=== PATIENT | female | born 1965 | race Caucasian/White ===

== ENCOUNTER 2025-02-20 08:41 | Observation (INO) | payer OTHER, SELFPAY ==
[2025-02-20] VITALS (15 sets, daily range): BP systolic 92–129; BP diastolic 50–68; PULSE 57–67; RESP 14–33; TEMP 36.2–36.4; O2SAT 94–98; BMI 30.6
--- NOTE | 2025-02-20 08:42 | ED.AMS ---
HPI - Altered Mental Status General Chief Complaint: Altered Mental Status Stated Complaint: Liver Disease, Diabetes Time Seen by Provider: 02/20/25 08:42 History of Present Illness HPI narrative: 59-year-old female history of diabetes liver disease with history of hepatic encephalopathy on lactulose brought in via EMS for increased confusion weakness and irritability traveling here for crabbing but having difficulty arousing her and was combative prior to arrival. Patient has altered mental status unable to obtain 14 point review of system at this time. MD complaint: altered mental status, confusion, decreased responsiveness and weakness Related Data Allergies Allergy/AdvReac Type Severity Reaction Status Date / Time No Known Drug Allergies Allergy Verified 02/20/25 08:46 Review of Systems Review of Systems ROS Unobtainable: Unobtainable due to mental status/LOC Patient History Social History Smoking Status: Former smoker Exam Narrative Exam Narrative: GENERAL: [59] year old patient appears stated age. Well-developed patient, in mild distress. HEAD: Atraumatic. Normocephalic. EYES: Pupils equal round and reactive. Extraocular motions intact. No scleral icterus. No injection or drainage. ENT: Nose without bleeding, purulent drainage. Throat without erythema, tonsillar hypertrophy or exudate. Airway patent. NECK: Trachea midline. Non tender CARDIOVASCULAR: Regular rate and rhythm without murmurs, gallops, or rubs. RESPIRATORY: Clear to auscultation. Breath sounds equal bilaterally. No wheezes, rales, or rhonchi. GASTROINTESTINAL: Abdomen soft, non-tender, nondistended. EXTREMITIES: No edema or joint tenderness. BACK: Nontender without deformity or crepitance. No flank tenderness. NEURO: AOx1. Spontaneously moving arms and legs but and unable to answer questions appropriately at this time SKIN: No rash or erythema of visible areas Initial Vital Signs Initial Vital Signs: Vital Signs Temperature 97.3 F L 02/20/25 08:40 Pulse Rate 61 02/20/25 08:40 Respiratory Rate 18 02/20/25 08:40 Blood Pressure 99/55 L 02/20/25 08:40 Pulse Oximetry 96 02/20/25 08:40 Oxygen Delivery Method Room Air 02/20/25 08:40 Course Orders Ordered: ED Orders 02/20/25 08:47 XR chest 1V Stat EKG-12 Lead Stat 02/20/25 08:50 Ammonia (NH3) Stat Complete Blood Count AUTO DIFF Stat Comprehensive Metabolic Panel Stat Ethanol (ETOH) Stat Lactate (Lactic Acid) Stat Procalcitonin Stat Troponin & CK Cardiac Panel Stat 02/20/25 09:13 Urinalysis and Microscopic Stat Urine Drug Screen, Rapid Stat 02/20/25 10:06 Blood Culture Stat Discontinued Medications Lactated Ringer's (Lactated Ringers) 1,000 mls @ 1,000 mls/hr IV BOLUS ONE Stop: 02/20/25 10:04 Last Infusion: 02/20/25 09:51 Dose: 0 mls/hr Documented By: Admin: 02/20/25 09:20 Dose: 1,000 mls/hr Documented By: TERE Vital Signs Vital signs: Vital Signs - 8 hr 02/20/25 08:40 02/20/25 08:44 02/20/25 08:44 Temperature 97.3 F L Pulse Rate 61 62 Respiratory Rate 18 Blood Pressure 99/55 L 99/55 L Pulse Oximetry 96 95 Oxygen Delivery Method Room Air 02/20/25 09:00 02/20/25 09:01 02/20/25 09:01 Temperature Pulse Rate 57 L 58 L Respiratory Rate 26 H 33 H Blood Pressure 105/58 L Pulse Oximetry 96 97 Oxygen Delivery Method Room Air Room Air 02/20/25 09:11 02/20/25 09:11 02/20/25 09:20 Temperature Pulse Rate 60 Respiratory Rate 32 H Blood Pressure 92/50 L 123/58 L Pulse Oximetry 95 Oxygen Delivery Method Room Air 02/20/25 09:20 02/20/25 09:30 02/20/25 09:31 Temperature Pulse Rate 59 L 65 Respiratory Rate 14 Blood Pressure 103/62 Pulse Oximetry 94 Oxygen Delivery Method 02/20/25 09:31 02/20/25 09:40 02/20/25 09:40 Temperature Pulse Rate 67 63 Respiratory Rate Blood Pressure 120/68 Pulse Oximetry 96 Oxygen Delivery Method 02/20/25 09:50 02/20/25 09:50 02/20/25 10:00 Temperature Pulse Rate 65 Respiratory Rate 29 H Blood Pressure 116/64 129/60 Pulse Oximetry 96 Oxygen Delivery Method 02/20/25 10:00 Temperature Pulse Rate 66 Respiratory Rate 16 Blood Pressure Pulse Oximetry 96 Oxygen Delivery Method MDM - Altered Mental Status Lab Data 02/20/25 08:50 07/09/25 08:50 Labs: Lab Results 02/20/25 02/20/25 02/20/25 Range/Units 08:50 09:13 09:13 WBC 3.2 L (4.5-11.0) X10^3/uL RBC 3.54 L (4.0-5.2) X10^6/uL Hgb 11.3 L (12.0-16.0) g/dL Hct 32.7 L (36-46) % MCV 92.3 (80-100) fL MCH 32.0 (26-34) PG MCHC 34.6 (30-36) % RDW 16.7 H (11.6-14.8) % Plt Count 153 (150-400) X10^3/uL Neut % (Auto) 33.6 L (50-75) % Lymph % (Auto) 35.9 (25-40) % [place] % (Auto) 16.4 H (3-14) % Eos % (Auto) 12.4 H (2-4) % Baso % (Auto) 1.7 (0-2) % Neut # (Auto) 1100 L (9078-9204) /uL Lymph # (Auto) 1200 (8249-4836) /uL [place] # (Auto) 500 (0-900) /uL Eos # (Auto) 400 (0-450) /uL Baso # (Auto) 100 (0-100) /uL Sodium 138 (137-145) mmol/L Potassium 4.3 (3.4-5.1) mmol/L Chloride 113 H (98-107) mmol/L Carbon Dioxide 22 (22-32) mmol/L BUN 12 (7-17) mg/dL Creatinine 0.71 (0.52-1.04) mg/dL Estimated GFR > 60 (>60) mL/min BUN/Creatinine Ratio 16.9 (6-22) Glucose 183 H (70-99) mg/dL Lactate 1.6 (0.7-2.1) mmol/L Calcium 9.1 (8.4-10.2) mg/dL Total Bilirubin 1.5 H (0.2-1.3) mg/dL AST 50 H (14-36) IU/L ALT 29 (<35) IU/L Alkaline Phosphatase 145 H (38-126) U/L Ammonia 184 H (9-30) umol/L Total Creatine Kinase 145 H (30-135) U/L Troponin I < 0.012 (0.01-0.034) ng/mL Total Protein 6.8 (6.3-8.2) g/dL Albumin 2.9 L (3.5-5.0) g/dL Globulin 3.9 (1.7-4.1) g/dL Albumin/Globulin Ratio 0.7 L (1.0-2.8) Procalcitonin 0.043 (<0.5) ng/mL Urine Color Yellow Urine Appearance Clear Urine pH 8.5 H Normal (4.5-8.0) Ur Specific [place] 1.015 (1.000-1.035) Urine Protein Negative (Negative) Urine Glucose (UA) Negative (Negative) g/dL Urine Ketones Negative (NEGATIVE) Urine Occult Blood Negative (Negative) Urine Nitrate Negative (Negative) Urine Bilirubin Negative (NEGATIVE) Urine Urobilinogen 2.0 H (0.2) E.U./dL Ur Leukocyte Esterase Negative (NEGATIVE) Urine RBC 0-1/hpf (0-5/HPF) Urine WBC 0-1/hpf (0-5/HPF) Ur Squamous Epith Cells 1-5 /hpf (0-5/HPF) Amorphous Sediment 2+ Urine Bacteria None seen (None) Ur Culture Indicated? Cult not indicated Vol Urine Centrifuged 10ml (spun) U Opiates 300ng/mL cut Negative (Negative) Ur Oxycodone Screen Negative (Negative) Urine Methadone Screen Negative (Negative) Ur Barbiturates Screen Negative (Negative) U Tricyclic Antidepress Negative (Negative) Ur Phencyclidine Scrn Negative (Negative) Ur Amphetamines Screen Negative (Negative) U Methamphetamines Scrn Negative (Negative) Ur MDMA Scrn (Ecstasy) Negative (Negative) U Benzodiazepines Scrn Negative (Negative) Urine Cocaine Screen Negative (Negative) U Marijuana (THC) Screen Positive H (Negative) Urine Specific [place] Normal (Normal) Ethyl Alcohol < 10 (<10) mg/dL Ur Creatinine Normal (Normal) ECG Data Interpretation: Sinus Mavis HR 59 OR 184 QRS [address]-t wave change No previous EKG to compare MDM Narrative Medical decision making narrative: Vital signs, nurse triage note, medication list, previous ER visits, and all imaging studies reviewed. Marijuana positive, ammonia is 184 T bili 1.5 AST 50 WBC 3.2, hg 11.3. Trop <0.12 SInus mavis 58 Chest x-ray bilateral interstitial prominence may be secondary to atypical or viral pneumonia versus mild edema. Lactulose given here. Case discussed with Dr. Vaz who has graciously accepted the patient for inpatient admission. Discharge Plan Departure Patient Disposition: Admitted as Observation Clinical Impression: Acute hepatic encephalopathy
--- NOTE | 2025-02-20 08:47 | DI.RAD.S_ITS ---
PROCEDURE: XR CHEST 1V INDICATIONS: altered mental status TECHNIQUE: One view of the chest was acquired. COMPARISON: None. FINDINGS: Surgical changes and devices: Right upper quadrant surgical clips. Lungs and pleura: Mild bilateral interstitial prominence. No dense consolidation. No pleural effusions or pneumothorax. Mediastinum: Mediastinal contours appear normal. Heart size is normal. Bones and chest wall: No suspicious bony lesions. Overlying soft tissues appear unremarkable. IMPRESSION: Bilateral interstitial prominence may be secondary to an atypical or viral pneumonia versus mild edema. Approved by: Andrzej Hewitt M.D. on 02/20/2025 at 9:14
[2025-02-20 09:01] LABS: Add Manual Diff / Slide Review NO; Hematocrit 32.7 % (36-46); Hemoglobin 11.3 g/dL (12.0-16.0); Lymphocytes Absolute Auto 1200 /uL (1100-4500); Mean Corpuscular HGB Conc 34.6 % (30-36); Mean Corpuscular Hemoglobin 32.0 PG (26-34); Mean Corpuscular Volume 92.3 fL (80-100); Platelet Count 153 X10^3/uL (150-400)
--- NOTE | 2025-02-20 09:01 | EKG_ITS ---
[address] [address] Test Date: 2025-02-20 Pat Name: Aleja Obrien Department: Room: Gender: Female Passenger Vessel Chef: JOSE : 1965 Requested By: Order Number: [id number] Reading MD: Hossein Ruiz MD Measurements Intervals [place] Rate: 59 P: 20 OK: 184 QRS: 44 QRSD: 92 T: 53 QT: 482 QTc: 477 Interpretive Statements Sinus bradycardia Electronically Signed On 02-20-2025 9:39:44 PDT by Hossein Ruiz MD
[2025-02-20] MEDS: LACTATED RINGERS 1,000 ML 1000 ML IV (09:20)
[2025-02-20 09:27] LABS: Ammonia (NH3) 184 umol/L (9-30); Lactate (Lactic Acid) 1.6 mmol/L (0.7-2.1)
[2025-02-20 09:28] LABS: Alanine Aminotransferase 29 IU/L (<35); Albumin 2.9 g/dL (3.5-5.0); Albumin Globulin Ratio 0.7 (1.0-2.8); Alkaline Phosphatase 145 U/L (38-126); Blood Urea Nitrogen 12 mg/dL (7-17); Calcium 9.1 mg/dL (8.4-10.2); Carbon Dioxide 22 mmol/L (22-32); Chloride 113 mmol/L (98-107); Creatine Kinase 145 U/L (30-135); Estimated Glomerular Filt Rate > 60 mL/min (>60); Ethanol (ETOH) < 10 mg/dL (<10); Globulin 3.9 g/dL (1.7-4.1); Glucose 183 mg/dL (70-99); HEMOLYSIS < 15 (0-50); Potassium 4.3 mmol/L (3.4-5.1); Sodium 138 mmol/L (137-145); Total Protein 6.8 g/dL (6.3-8.2)
[2025-02-20 09:31] LABS: Appearance Urine UA CLEAR; Bilirubin Urine UA NEGATIVE (NEGATIVE); Color Urine UA YELLOW; Glucose Urine UA NEGATIVE (Negative); Ketones Urine UA NEGATIVE (NEGATIVE); Leukocyte Esterase Urine UA NEGATIVE (NEGATIVE); Nitrite Urine UA NEGATIVE (Negative); Occult Blood Urine UA NEGATIVE (Negative); Protein Urine UA NEGATIVE (Negative); Specific Gravity Urine UA 1.015 (1.000-1.035); Urobilinogen Urine UA 2.0 E.U./dL (0.2)
[2025-02-20 09:34] LABS: pH Urine UA 8.5 (4.5-8.0)
[2025-02-20 09:38] LABS: UR Morphine/Opiate cutoff 300 Negative (Negative); Ur Specific Gravity Normal (Normal); Urine MDMA Negative (Negative); Urine Methamphetamines Negative (Negative); Urine Tetrahydrocannabinol Positive (Negative); Urine Tricyclic Antidepressant Negative (Negative)
--- NOTE | 2025-02-20 09:38 | PC.NURSE ---
This RN responded to call light for this patient. Patient cousin at patient beside. Patient sitting upright at the end of the bed. Patient continues to repeat I need to pee and I need to sleep. This RN informed patient that we just drained their bladder with a straight cathether. This RN offered to place a purewick or a bedpan. Patient responds I need to lay down. This RN rao Lambert. This RN asked patient to lay back and patient eventually agreed that was what they wanted. Patient laid back and this RN with aide used sliding sheet to move patient back up further in bed. This RN noted right leg swelling with a reddened area around patient prater and informed provider.
[2025-02-20 09:39] LABS: Troponin I < 0.012 ng/mL (0.01-0.034)
[2025-02-20 09:39] LABS: Culture Indicated Urine Cult Not Indicated
[2025-02-20 09:44] LABS: Procalcitonin 0.043 ng/mL (<0.5)
--- NOTE | 2025-02-20 09:52 | PC.NURSE ---
This RN talked to Dr. Kolb about patient chest x-ray. This RN attempted to listen to patient lungs but patient unable to follow deep breaths when asked. This RN is able to hear lung sounds in the top of bilateral lungs but bases seem diminished left greater than right. Provider notified and this RN got verbal order to place stop in fluid infusion at this time. Infusion paused and connection removed from patient.
--- NOTE | 2025-02-20 10:20 | PC.NURSE ---
Patient asked technology teacher who was drawing her blood that she needed to go pee. This RN went and got a commode. This RN asked for assistance from ONI Navas. This RN placed non slip socks on patient feet. This RN with CUSTOM STOCK MAKER assisted patient to get up. Patient was able to stand at bedside but needed directional assistance. Patient sat on commode and urinated and then stood and pivoted and transferred back into bed. This RN measured the urine and it was 150ml. Urine recorded. Patient requested additional pillow for behind her back. Patient laying on left side and additional pillow placed behind patient. Bilateral bed rails lifted and call light placed next to patient hand. Patient cousin and spouse at patient beside.
--- NOTE | 2025-02-20 11:07 | PC.NURSE ---
Patient was assisted to commode by Eloise BUNN. Patient urinated and returned to bed but refused to lay down in the normal format and insisted in laying upside down with head at the end of the bed.
[2025-02-20] MEDS: LACTULOSE 20 GM/30 ML SOLUTION PO (11:32)
--- NOTE | 2025-02-20 11:38 | PC.NURSE ---
Patient transported upstairs via stretcher with ONI Navas. This RN gave verbal report to Chris Mcmanus RN
--- NOTE | 2025-02-20 12:11 | PC.NURSE ---
Addendum entered by Chris Mcmanus R.N. 02/20/25 22:32: Patient dangled at bedside, states, I have to pee. Patient took medications with lots of convincing. Patient up and back to bed 3 times without getting on to BSC. Patient refused to replace brief after removing at bedside. Pt. was verbally aggressive with this nurse while trying to get her up to BSC. Addendum entered by Chris Mcmanus R.N. 02/20/25 15:37: Patient resting in bed, snoring. Original Note: Assumed 1:1 with patient upon arrival to AC floor. Patient is easily agitated. Req. to get up out of bed and attempts to get out of bed every 2 minutes to go to the bathroom. When patient gets to BSC patient has no urine output. Brief was placed on patient. Patient is back to bed and continues to be impulsive to get out, yelling I have to pee.
[2025-02-20] MEDS: LACTULOSE 20 GM/30 ML SOLUTION 30 GM PO ×3 (12:42→22:15)
--- NOTE | 2025-02-20 14:32 | PM.HP.1 ---
History of Present Illness History of Present Illness Date Patient Seen: 02/20/25 Time Patient Seen: 12:00 Chief complaint: Liver Disease, Diabetes Narrative: Patient was a 59-year-old female with history of alcohol-induced cirrhosis and recurrent hepatic encephalopathy. She was up in this area visiting from her home which is near [place]. She has been up her cramping with family. She was brought in for several days of progressive confusion which was even worse today. A family member notes that she tends to modify her lactulose and sheet when she was on vacation to avoid bowel movements another issues. The patient was awake but very encephalopathic and not able to participate in any discussion or answer any questions. There has been no report of recent falls, or trauma. It was also been no report of any recent illness. No other medical problems are reported from family members who were present. [facility] Social History Smoking Status: Former smoker Meds Home Medications and Allergies Home Medications ?Medication ?Instructions ?Recorded ?Confirmed ?Type acyclovir 5 % topical ointment 1 applic topical 6XD 02/20/25 02/20/25 History albuterol sulfate 90 mcg/actuation 2 inh inhalation QID PRN wheezing 02/20/25 02/20/25 History aerosol inhaler blood sugar diagnostic (True 02/20/25 02/20/25 History Metrix Glucose Test Strip) butenafine 1 % topical cream 1 applic topical DAILY 02/20/25 02/20/25 History (Lotrimin Ultra) citalopram 40 mg tablet 20 mg PO DAILY 02/20/25 02/20/25 History cyclobenzaprine 10 mg tablet 10 mg PO 3XD 02/20/25 02/20/25 History diphenhydramine HCl 25 mg tablet 25 mg PO BEDTIME PRN insomnia 02/20/25 02/20/25 History (Sominex) furosemide 20 mg tablet 20 mg PO BID 02/20/25 02/20/25 History ibuprofen 800 mg tablet 800 mg PO Q6H PRN pain 02/20/25 02/20/25 History insulin aspart U-100 100 unit/mL 1 unit SUBCUT TIDWM 02/20/25 02/20/25 History (3 mL) subcutaneous pen insulin glargine 100 unit/mL (3 12 unit SUBCUT DAILY 02/20/25 02/20/25 History mL) subcutaneous pen (Lantus Solostar U-100 Insulin) lactulose 10 gram/15 mL oral 30 ml PO 4XD 02/20/25 02/20/25 History solution (Constulose) levothyroxine 125 mcg tablet 125 mcg PO DAILY 02/20/25 02/20/25 History (Euthyrox) metoprolol succinate 25 mg 25 mg PO DAILY 02/20/25 02/20/25 History tablet,extended release 24 hr pen needle, diabetic 32 gauge x 02/20/25 02/20/25 History 5/32 (Violette 2nd Gen Pen Needle) polyethylene glycol 3350 17 17 g PO DAILY 02/20/25 02/20/25 History gram/dose oral powder (ClearLax) potassium chloride 10 mEq 10 meq PO DAILY 02/20/25 02/20/25 History tablet,extended release rifaximin 550 mg tablet (Xifaxan) 550 mg PO BID 02/20/25 02/20/25 History spironolactone 50 mg tablet 50 mg PO DAILY 02/20/25 02/20/25 History Allergies Allergy/AdvReac Type Severity Reaction Status Date / Time No Known Drug Allergies Allergy Verified 02/20/25 08:46 Review of Systems Review of Systems Narrative: Not obtainable due to mental status. Exam Vital Signs (past 8 hours): - 02/20/25 08:40 02/20/25 08:44 02/20/25 08:44 Temperature 97.3 F L Pulse Rate 61 62 Respiratory Rate 18 Blood Pressure 99/55 L 99/55 L Pulse Oximetry 96 95 Oxygen Delivery Method Room Air 02/20/25 09:00 02/20/25 09:01 02/20/25 09:01 Temperature Pulse Rate 57 L 58 L Respiratory Rate 26 H 33 H Blood Pressure 105/58 L Pulse Oximetry 96 97 Oxygen Delivery Method Room Air Room Air 02/20/25 09:11 02/20/25 09:11 02/20/25 09:20 Temperature Pulse Rate 60 Respiratory Rate 32 H Blood Pressure 92/50 L 123/58 L Pulse Oximetry 95 Oxygen Delivery Method Room Air 02/20/25 09:20 02/20/25 09:30 02/20/25 09:31 Temperature Pulse Rate 59 L 65 Respiratory Rate 14 Blood Pressure 103/62 Pulse Oximetry 94 Oxygen Delivery Method 02/20/25 09:31 02/20/25 09:40 02/20/25 09:40 Temperature Pulse Rate 67 63 Respiratory Rate Blood Pressure 120/68 Pulse Oximetry 96 Oxygen Delivery Method 02/20/25 09:50 02/20/25 09:50 02/20/25 10:00 Temperature Pulse Rate 65 Respiratory Rate 29 H Blood Pressure 116/64 129/60 Pulse Oximetry 96 Oxygen Delivery Method 02/20/25 10:00 02/20/25 10:30 02/20/25 11:00 Temperature Pulse Rate 66 63 65 Respiratory Rate 16 19 Blood Pressure Pulse Oximetry 96 96 95 Oxygen Delivery Method Oxygen Delivery Method Room Air Narrative Exam Narrative: NAD, awake and confused. She can not follow commands or engage in conversation. She does not really track. She was not jaundice. Normocephalic skull, EOMI, anicteric sclera, symmetric pupils. Oropharynx unremarkable, no droop. Neck supple, midline trachea, no adenopathy. Lungs clear, normal rate and effort. Heart regular, no murmur gallop or rub. Abdomen is soft, non distended and non tender. Extremities are free of edema. Skin is free of rash or lesions. Joints are not swollen or deformed. Judgment appears to be abnormal. Objective ECG Impression: Rate: 59 P: 20 NC: 184 QRS: 44 QRSD: 92 T: 53 QT: 482 QTc: 477 Interpretive Statements Sinus bradycardia Imaging Chest x-ray: Radiologist's impression: Bilateral interstitial prominence may be secondary to an atypical or viral pneumonia versus mild edema. Labs 02/20/25 08:50 02/20/25 08:50 Labs: Laboratory Results - last 24 hr 02/20/25 02/20/25 02/20/25 08:50 09:13 09:13 WBC 3.2 L RBC 3.54 L Hgb 11.3 L Hct 32.7 L MCV 92.3 MCH 32.0 MCHC 34.6 RDW 16.7 H Plt Count 153 Neut % (Auto) 33.6 L Lymph % (Auto) 35.9 [place] % (Auto) 16.4 H Eos % (Auto) 12.4 H Baso % (Auto) 1.7 Neut # (Auto) 1100 L Lymph # (Auto) 1200 [place] # (Auto) 500 Eos # (Auto) 400 Baso # (Auto) 100 Sodium 138 Potassium 4.3 Chloride 113 H Carbon Dioxide 22 BUN 12 Creatinine 0.71 Estimated GFR > 60 BUN/Creatinine Ratio 16.9 Glucose 183 H Lactate 1.6 Calcium 9.1 Total Bilirubin 1.5 H AST 50 H ALT 29 Alkaline Phosphatase 145 H Ammonia 184 H Total Creatine Kinase 145 H Troponin I < 0.012 Total Protein 6.8 Albumin 2.9 L Globulin 3.9 Albumin/Globulin Ratio 0.7 L Procalcitonin 0.043 Urine Color Yellow Urine Appearance Clear Urine pH 8.5 H Normal Ur Specific [place] 1.015 Urine Protein Negative Urine Glucose (UA) Negative Urine Ketones Negative Urine Occult Blood Negative Urine Nitrate Negative Urine Bilirubin Negative Urine Urobilinogen 2.0 H Ur Leukocyte Esterase Negative Urine RBC 0-1/hpf Urine WBC 0-1/hpf Ur Squamous Epith Cells 1-5 /hpf Amorphous Sediment 2+ Urine Bacteria None seen Ur Culture Indicated? Cult not indicated Vol Urine Centrifuged 10ml (spun) U Opiates 300ng/mL cut Negative Ur Oxycodone Screen Negative Urine Methadone Screen Negative Ur Barbiturates Screen Negative U Tricyclic Antidepress Negative Ur Phencyclidine Scrn Negative Ur Amphetamines Screen Negative U Methamphetamines Scrn Negative Ur MDMA Scrn (Ecstasy) Negative U Benzodiazepines Scrn Negative Urine Cocaine Screen Negative U Marijuana (THC) Screen Positive H Urine Specific [place] Normal Ethyl Alcohol < 10 Ur Creatinine Normal Assessment & Plan Assessment & Plan narrative: 1. Hepatic encephalopathy. Present on admission and active. 2. Alcohol induced cirrhosis, present on admission and active. She was had no alcohol since about 2016. PLAN: -lactulose q.6 hours, 20 g and monitor mental status. -obtain old records. -obtain medication list from her pharmacy. Anticipate 1 MN in the hospital, supports observation status. Time-Based Coding :: 35 min spent with patient and on the chart (including review of chart, obtaining history, exam, reviewing outside data, placing orders, documenting exam and treatment plan, and counseling patient) on 02/20. Quality MIPS - Admit I confirm the patient?s Advance Care Plan is present, Code status is documented, Surrogate decision maker is in patient?s record [If Yes, STOP here]: Yes MIPS - Meds 'Current medications' to include all prescriptions, [id number] products, herbals, cannabis/cannabidiol products, and vitamin/mineral/dietary (nutritional) supplements. I have utilized all available resources to obtain, update, or review the patient?s current medications. [If Yes, STOP here]: Yes
--- NOTE | 2025-02-20 15:14 | PC.RNWOUND ---
Photos are of RLE, margins drawn around redness on 02/20/25 at 1500 by this nurse.
[2025-02-20] MEDS: FUROSEMIDE 20 MG TABLET PO (18:08)
[2025-02-20] MEDS: RIFAXIMIN 200 MG TABLET 400 MG PO (22:16)
--- NOTE | 2025-02-20 23:43 | PC.NURSE ---
Patient 1:1 hand off to ONI Alfaro. Brief report given. Patient is up to BSC with loose stools and back to bed. Snack provided to patient, patient req. some assistance eating and drinking from cup.
[2025-02-21 06:00] VITALS: BP 102/41; PULSE 65; RESP 18; TEMP 36.2; O2SAT 93
[2025-02-21] MEDS: LEVOTHYROXINE 125 MCG TABLET PO (06:59)
[2025-02-21] MEDS: FUROSEMIDE 20 MG TABLET PO ×2 (06:59→16:23)
[2025-02-21 08:24] LABS: Hematocrit 30.2 % (36-46); Hemoglobin 10.6 g/dL (12.0-16.0); Mean Corpuscular HGB Conc 35.2 % (30-36); Mean Corpuscular Hemoglobin 32.3 PG (26-34); Mean Corpuscular Volume 91.8 fL (80-100); Platelet Count 141 X10^3/uL (150-400)
[2025-02-21 08:30] LABS: Blood Urea Nitrogen 10 mg/dL (7-17); Calcium 8.4 mg/dL (8.4-10.2); Carbon Dioxide 21 mmol/L (22-32); Chloride 113 mmol/L (98-107); Estimated Glomerular Filt Rate > 60 mL/min (>60); Glucose 162 mg/dL (70-99); HEMOLYSIS < 15 (0-50); Potassium 3.5 mmol/L (3.4-5.1); Sodium 137 mmol/L (137-145)
[2025-02-21 08:38] VITALS: BP 102/41; PULSE 65
[2025-02-21] MEDS: SPIRONOLACTONE 25 MG TABLET 50 MG PO (08:38)
[2025-02-21] MEDS: RIFAXIMIN 200 MG TABLET 400 MG PO ×3 (08:38→20:34)
[2025-02-21] MEDS: METOPROLOL ER 25 MG TABLET PO (08:38)
[2025-02-21] MEDS: CITALOPRAM 10 MG TABLET 20 MG PO (08:38)
[2025-02-21] MEDS: LACTULOSE 20 GM/30 ML SOLUTION 30 GM PO ×4 (08:39→20:35)
[2025-02-21] MEDS: INSULIN LISPRO 100 UNIT/ML 3ML VIAL SUBCUT ×2 (08:42→17:27)
--- NOTE | 2025-02-21 10:15 | PM.PN.1 ---
Subjective Subjective Interval history: Summary: 59-year-old female with history of alcohol-induced cirrhosis and recurrent hepatic encephalopathy. No alcohol since 2016. She also has diabetes. Two hold back on her lactulose when traveling in was up in this area fishing. She was was brought in for encephalopathy. S: She was still groggy and somewhat confused. She can answer simple questions in his little more arousable. She was able to eat and take her medications. She denies headache. Exam Vital Signs (past 8 hours): - 02/21/25 06:00 02/21/25 08:38 Temperature 97.2 F L Pulse Rate 65 65 Respiratory Rate 18 Blood Pressure 102/41 L 102/41 L Pulse Oximetry 93 Oxygen Flow Rate 0 Oxygen Delivery Method Room Air Oxygen Flow Rate 0 Narrative Exam Narrative: NAD, Arousable. Slow speech. Lungs are clear, normal rate and effort. Heart is regular, no murmur gallop or rub. Abdomen is soft, non distended. Extremities are free of edema. Objective Labs 02/21/25 07:35 02/21/25 07:35 Labs: Laboratory Results - last 24 hr 02/20/25 02/20/25 02/21/25 17:59 22:20 07:35 WBC 3.5 L RBC 3.29 L Hgb 10.6 L Hct 30.2 L MCV 91.8 MCH 32.3 MCHC 35.2 RDW 16.5 H Plt Count 141 L Sodium 137 Potassium 3.5 Chloride 113 H Carbon Dioxide 21 L BUN 10 Creatinine 0.64 Estimated GFR > 60 BUN/Creatinine Ratio 15.6 Glucose 162 H POC Whole Bld Glucose 127 H 105 H Calcium 8.4 02/21/25 07:55 WBC RBC Hgb Hct MCV MCH MCHC RDW Plt Count Sodium Potassium Chloride Carbon Dioxide BUN Creatinine Estimated GFR BUN/Creatinine Ratio Glucose POC Whole Bld Glucose 144 H Calcium PFSH Social History household members: spouse Smoking Status: Current every day smoker alcohol intake: former Assessment & Plan Assessment & Plan narrative: 1. Hepatic encephalopathy. Present on admission and slowly improving. 2. Alcohol induced cirrhosis, present on admission and active. She was had no alcohol since about 2015. 3. DM 2, stable. PLAN: -lactulose q.6 hours, 20 g and monitor mental status. -obtain old records. -obtain medication list from her pharmacy. NICK: 02/22 if mental status improves to baseline. Full code. is proxy. Anticipate a second MN in the hospital. Time-Based Coding :: [TOTAL MINUTES] spent with patient and on the chart (including review of chart, obtaining history, exam, reviewing outside data, placing orders, documenting exam and treatment plan, and counseling patient) on [DATE].
[2025-02-21] MEDS: POTASSIUM CHLORIDE 20 MEQ TAB 40 MEQ PO (10:17)
--- NOTE | 2025-02-21 10:26 | CM.DANOTE ---
DCP Assessment Note pt is a 59yo F admitted with alcohol induced cirrhosis/hepatic encephalopathy. AMS. PCP [facility] ([facility]?) MIO reviewed EMR. per provider in morning rounds, anticipate DC tomorrow if mentation continues to clear. per RN, pt better today with confusion, remains 1:1. pt resting during attempted assessment. Spoke with spouse Fran on the phone ([phone]). reports him and pt live indep in [place], he's currently at a hotel while they are here out of town. gets lots of support from the [facility], already has been in contact with [facility] nurse. pt has a cane and uses it sometimes, no other DME. could get any DME needed from [facility] medical staff. spouse would appreciate knowing if dc by 11am tomorrow so he can check out of hotel vs attempt to book hotel for another night. deny any other DCP/CM needs at this time. P: anticipate dc home when medically stable (tomorrow?) with spouse and [facility] support. no identified barriers to safe dc home identified at this time. alert spouse as soon as known if dc or not Tuesday. will continue to follow closely in case any DCP needs should arise MIO Castro Discharge Planning/Care Management CM Discharge Assessment Start: 02/20/25 11:08 Freq: Status: Active Protocol: Document 02/21/25 10:25 SL (Rec: 02/21/25 10:26 Desktop) Discharge Planning Assessment Assigned Discharge MIO Banda Dough Puncher DPOA/Assigned Dandre, spouse Designee Name Contact Information [phone] Advance Directives? No History Provided By Family Member Prior Living House Arrangements Household Members spouse Type of Drives own vehicle transporation used prior to admit Independent with ADL Yes 's Is patient alert and Yes oriented? DME Already Rented / Cane Owned Discharge Plan Home Referrals Initiated None needed Review Status In Process Please Provide Date 02/21/25 Initial DC Assessment Was Performed Next Review Type Continued Stay Review
[2025-02-21] MEDS: ENOXAPARIN 40 MG/0.4 ML SYRINGE SUBCUT (10:33)
[2025-02-21 12:00] VITALS: BP 109/51; PULSE 61; RESP 18; TEMP 36.4; O2SAT 94
[2025-02-21 20:00] VITALS: BP 97/44; PULSE 58; RESP 17; TEMP 36.6; O2SAT 94
[2025-02-22 05:25] LABS: Hematocrit 29.9 % (36-46); Hemoglobin 10.5 g/dL (12.0-16.0); Mean Corpuscular HGB Conc 35.1 % (30-36); Mean Corpuscular Hemoglobin 32.1 PG (26-34); Mean Corpuscular Volume 91.6 fL (80-100); Platelet Count 132 X10^3/uL (150-400)
[2025-02-22 05:36] LABS: Hemoglobin A1C% w Est Avg Glu 7.2 % (4.0-6.0)
[2025-02-22 05:40] LABS: Blood Urea Nitrogen 11 mg/dL (7-17); Calcium 8.7 mg/dL (8.4-10.2); Carbon Dioxide 22 mmol/L (22-32); Chloride 110 mmol/L (98-107); Estimated Glomerular Filt Rate > 60 mL/min (>60); Glucose 195 mg/dL (70-99); HEMOLYSIS < 15 (0-50); Potassium 3.8 mmol/L (3.4-5.1); Sodium 135 mmol/L (137-145)
[2025-02-22] MEDS: FUROSEMIDE 20 MG TABLET PO (06:30)
[2025-02-22] MEDS: LEVOTHYROXINE 125 MCG TABLET PO (06:30)
--- NOTE | 2025-02-22 07:29 | PM.PN.1 ---
Subjective Subjective Date Patient Seen: 02/22/25 Exam Vital Signs (past 8 hours): Oxygen Delivery Method Room Air Oxygen Flow Rate 0 Objective Labs 02/22/25 05:01 02/22/25 05:01 Labs: Laboratory Results - last 24 hr 02/21/25 02/21/25 02/21/25 07:35 07:55 11:38 WBC 3.5 L RBC 3.29 L Hgb 10.6 L Hct 30.2 L MCV 91.8 MCH 32.3 MCHC 35.2 RDW 16.5 H Plt Count 141 L Sodium 137 Potassium 3.5 Chloride 113 H Carbon Dioxide 21 L BUN 10 Creatinine 0.64 Estimated GFR > 60 BUN/Creatinine Ratio 15.6 Glucose 162 H POC Whole Bld Glucose 144 H 178 H Hemoglobin A1c Calcium 8.4 02/21/25 02/22/25 17:12 05:01 WBC 3.8 L RBC 3.27 L Hgb 10.5 L Hct 29.9 L MCV 91.6 MCH 32.1 MCHC 35.1 RDW 16.3 H Plt Count 132 L Sodium 135 L Potassium 3.8 Chloride 110 H Carbon Dioxide 22 BUN 11 Creatinine 0.67 Estimated GFR > 60 BUN/Creatinine Ratio 16.4 Glucose 195 H POC Whole Bld Glucose 185 H Hemoglobin A1c 7.2 H Calcium 8.7 PFSH Social History household members: spouse Smoking Status: Current every day smoker alcohol intake: former Assessment & Plan Assessment & Plan narrative: 1. Hepatic encephalopathy. Present on admission and slowly improving. 2. Alcohol induced cirrhosis, present on admission and active. She was had no alcohol since about 2015. 3. DM 2, stable. PLAN: -lactulose q.6 hours, 20 g and monitor mental status. -obtain old records. -obtain medication list from her pharmacy. NICK: 02/22 if mental status improves to baseline. Full code. is proxy. Anticipate a second MN in the hospital. Time-Based Coding :: [TOTAL MINUTES] spent with patient and on the chart (including review of chart, obtaining history, exam, reviewing outside data, placing orders, documenting exam and treatment plan, and counseling patient) on [DATE].
[2025-02-22 08:00] VITALS: BP 104/44; PULSE 56; RESP 17; TEMP 36.3; O2SAT 95
[2025-02-22] MEDS: INSULIN LISPRO 100 UNIT/ML 3ML VIAL SUBCUT (08:33)
--- NOTE | 2025-02-22 08:43 | PM.DS.1 ---
History of Present Illness History of Present Illness Date Patient Seen: 02/22/25 Chief complaint: Liver Disease, Diabetes Narrative: Patient was a 59-year-old female with history of alcohol-induced cirrhosis and recurrent hepatic encephalopathy. She was up in this area visiting from her home which is near [place]. She has been up her cramping with family. She was brought in for several days of progressive confusion which was even worse today. A family member notes that she tends to modify her lactulose and sheet when she was on vacation to avoid bowel movements another issues. The patient was awake but very encephalopathic and not able to participate in any discussion or answer any questions. There has been no report of recent falls, or trauma. It was also been no report of any recent illness. No other medical problems are reported from family members who were present. Discharge Providers Provider Date of admission: 02/20/25 10:51 Discharge Date: 02/22/25 Primary care physician: Alex Belle MD Discharge provider: Sebastián Perez MD Summary Hospital Course Hospital Course: 1. Hepatic encephalopathy. Acute exacerbation accounted for by stopping medication while traveling. Resolved back to baseline with treatment. 2. Alcohol induced cirrhosis. She was had no alcohol since about 2015. 3. DM 2, stable. PLAN: -lactulose q.6 hours, 20 g and rifaximin Her confusion cleared quite quickly after resuming lactulose and rifaximin. She will need to avoid stopping her medicines while traveling. She will resume everything now and return home to follow up with her doctor soon. Status at Discharge Cognitive/behavioral status at discharge: oriented Functional status at discharge: independent ambulation Overall status at discharge: patient is back to baseline Exam Vital Signs (past 8 hours): Oxygen Delivery Method Room Air Oxygen Flow Rate 0 Narrative Exam Narrative: Alert and oriented x3. No apparent distress. Heart is regular rate and rhythm without murmur Lungs are clear to auscultation bilaterally Left ankle is normal Right ankle has a moderately large area of swelling and discoloration which is chronic, for the last 2 years. Objective Labs 02/22/25 05:01 02/22/25 05:01 Labs: Laboratory Results - last 24 hr 02/21/25 02/21/25 02/22/25 11:38 17:12 05:01 WBC 3.8 L RBC 3.27 L Hgb 10.5 L Hct 29.9 L MCV 91.6 MCH 32.1 MCHC 35.1 RDW 16.3 H Plt Count 132 L Sodium 135 L Potassium 3.8 Chloride 110 H Carbon Dioxide 22 BUN 11 Creatinine 0.67 Estimated GFR > 60 BUN/Creatinine Ratio 16.4 Glucose 195 H POC Whole Bld Glucose 178 H 185 H Hemoglobin A1c 7.2 H Calcium 8.7 02/22/25 07:55 WBC RBC Hgb Hct MCV MCH MCHC RDW Plt Count Sodium Potassium Chloride Carbon Dioxide BUN Creatinine Estimated GFR BUN/Creatinine Ratio Glucose POC Whole Bld Glucose 181 H Hemoglobin A1c Calcium COUNTS INCLUDE 234 BEDS AT THE [facility] Social History household members: spouse Smoking Status: Current every day smoker alcohol intake: former Discharge Plan Discharge Plan Patient Disposition: Home Provider Discharge Comment: Follow up with Dr. Belle in [place] in 1-2 weeks. Discharge orders & Medications Prescriptions: Continued citalopram 40 mg tablet 20 mg PO DAILY Rx Instructions: 20 mg (patients takes 2 tablets (20 mg total) by mouth once daily (DME) True Metrix Glucose Test Strip Strip MISCELLANEOUS 3XD cyclobenzaprine 10 mg tablet 10 mg PO 3XD furosemide 20 mg tablet 20 mg PO BID insulin aspart U-100 100 unit/mL (3 mL) insulin pen 1 unit SUBCUT TIDWM Patient Comments: Inject 0.01-0.05 mL (1-5 Units total) under the skin three times daily per scale before meals. insulin glargine [Lantus Solostar U-100 Insulin] 100 unit/mL (3 mL) insulin pen 12 unit SUBCUT DAILY potassium chloride 10 mEq tablet extended release 10 meq PO DAILY spironolactone 50 mg tablet 50 mg PO DAILY lactulose [Constulose] 10 gram/15 mL solution 30 ml PO 4XD Xifaxan 550 mg tablet 550 mg PO BID (DME) pen needle, diabetic [Violette 2nd Gen Pen Needle] 32 gauge x /32 needle MISCELLANEOUS Patient Comments: [NO ORIGINAL SIG] acyclovir 5 % ointment 1 applic topical 6XD albuterol sulfate 90 mcg/actuation HFA aerosol inhaler 2 inh inhalation QID PRN (Reason: wheezing) butenafine [Lotrimin Ultra] 1 % cream 1 applic topical DAILY diphenhydramine HCl [Sominex] 25 mg tablet 25 mg PO BEDTIME PRN (Reason: insomnia) ibuprofen 800 mg tablet 800 mg PO Q6H PRN (Reason: pain) levothyroxine [Euthyrox] 125 mcg tablet 125 mcg PO DAILY metoprolol succinate 25 mg tablet extended release 24 hr 25 mg PO DAILY polyethylene glycol 3350 [ClearLax] 17 gram/dose powder 17 g PO DAILY Follow up/Referrals: Alex Belle MD [Primary Care Provider, Family Practice] Visit Report/Discharge Packet Stand Alone Forms: Patient Portal/API, Stroke Signs & Symptoms Discharge Data Primary Care Provider: Alex Belle Attending Provider: Harmna Vaz Admit Date/Time: 02/20/25 10:51
[2025-02-22 08:50] VITALS: BP 104/44; PULSE 56
[2025-02-22] MEDS: ENOXAPARIN 40 MG/0.4 ML SYRINGE SUBCUT (08:50)
[2025-02-22] MEDS: METOPROLOL ER 25 MG TABLET PO (08:50)
[2025-02-22] MEDS: SPIRONOLACTONE 25 MG TABLET 50 MG PO (08:50)
[2025-02-22] MEDS: RIFAXIMIN 200 MG TABLET 400 MG PO (08:50)
[2025-02-22] MEDS: CITALOPRAM 10 MG TABLET 20 MG PO (08:52)
--- NOTE | 2025-02-22 09:15 | CM.DPNOTE ---
DCP Continued: Reviewed EMR and team rounds for pt?s medical status. Per hospitalist, pt cleared for discharge home with spouse today. DCP notified pt spouse via phone call as soon as dc order available so he does not re-new for another night at hotel. Pt spouse verbalized understanding, declined any other dc needs. Plan: DC orders placed, anticipating dc home with spouse to transport. CM Team will continue to follow for coordination of discharge plans. MARNI ArechigaSW
--- NOTE | 2025-02-22 10:35 | PC.NURSE ---
Pt denies any issues at this time. A/O SBA to BR Pt anxious to discharge for trip home MD in to see; orders received. Home instructions given w/understanding Pt escorted by staff via W/C to waiting vehicle D/C in stable status.
== END 2025-02-22 10:25 | disposition home or self-care (01) ==
LOC: ED 10:49 → AC 10:53
PROVIDERS: Admitting Provider Hospitalist; Emergency Provider Family Medicine; PCP Family Medicine; Referring Provider Family Medicine; Visit Provider Hospitalist
DX: K76.82 Hepatic encephalopathy (principal); K70.30 Alcoholic cirrhosis of liver without ascites; R53.1 Weakness; R45.4 Irritability and anger; E11.9 Type 2 diabetes mellitus without complications; Z79.4 Long term (current) use of insulin; F17.210 Nicotine dependence, cigarettes, uncomplicated
CPT/HCPCS: 36415; 51701; 71045; 80048; 80053; 80305; 80320; 81001; 82140; 82550; 82962; 83036; 83605; 84145; 84484; 85025; 85027; 87040; 93005; 93010; 96360; 96372; 99284; G0378; J1650; J1815